=== PATIENT | female | born 1945 | race Caucasian/White ===

== ENCOUNTER 2021-02-24 14:18 | Day surgery (SDC) | payer MEDICARE, OTHER ==
[~2021-02-24] VITALS: Ht 152.4 cm; Wt 75.1 kg
[~2021-02-24 14:18] MED LIST: ALBU8HFA2 INH; ATOR20 PO; AZIT500 PO; CARV6.25 PO; COREG PO; ESTR.05PBW TOP; ESTRADIOL PO; FAMO40 PO; GUAI600T33 PO; LISI20 PO; LISINOPRIL PO; MEDR2.5 PO; MOM PO; OMEP40CA12 PO; PROM25 PO; SENNA PO; VENL25 PO; VENLAFAXINE PO; VIT D PO
== END 2021-02-24 15:55 | disposition home or self-care (01) ==
LOC: ORSCSDS 14:18
PROVIDERS: Internal Medicine Gastroenterology
PROC: 0DBK8ZX Excision of Ascending Colon, Via Natural or Artificial Opening Endoscopic, Diagnostic (ICD-10-PCS; principal; 2021-02-24 15:15)
PROC: 0DBH8ZX Excision of Cecum, Via Natural or Artificial Opening Endoscopic, Diagnostic (ICD-10-PCS; principal; 2021-02-24 15:15)
DX: Z12.11 Encounter for screening for malignant neoplasm of colon (principal); Z86.010 Personal history of colon polyps; D12.0 Benign neoplasm of cecum; D37.4 Neoplasm of uncertain behavior of colon; K64.8 Other hemorrhoids; K63.89 Other specified diseases of intestine; K57.30 Diverticulosis of large intestine without perforation or abscess without bleeding; I10 Essential (primary) hypertension; Z79.899 Other long term (current) drug therapy
CPT/HCPCS: 88305; J2405; J2704; J7120

== ENCOUNTER → 2021-07-13 | Outpatient (CLI) | payer MEDICARE, OTHER | END | disposition home or self-care (01) | LOC: LAB SHORT 11:40 → LAB 11:40 | DX: L57.0 Actinic keratosis (principal) | CPT/HCPCS: 88305 ==

== ENCOUNTER 2023-11-12 07:24 | Day surgery (SDC) | payer MEDICARE, OTHER ==
[~2023-11-12] VITALS: Ht 154.9 cm; Wt 77.0 kg
[~2023-11-12 07:24] MED LIST changes: -CARV6.25 PO; +Carvedilol12.5 MG PO; +FOLI1 PO; +KETOROLAC TROMET5 ML; +Triamcinolone A15 G4 TOP; +VENL150ER PO; -VENL25 PO
[2023-11-12] MEDS ORDERED: ASPIR 8181 MG PO (07:45)
[2023-11-12] MEDS ORDERED: VITAMIN B125000 MC1 PO (07:45)
[2023-11-12] MEDS ORDERED: VITAMIN B122500 MC1 PO (07:46)
[2023-11-12] MEDS ORDERED: DOCU100 PO (07:46)
[2023-11-12 08:43] VITALS: BP 142/68
--- NOTE | 2023-11-12 08:58 | NUR ---
11/12/23 0858 Prince Gross IV REMOVED INTACT. SITE WNL.
== END 2023-11-12 08:58 | disposition home or self-care (01) ==
LOC: ORSCSDS 07:24
PROVIDERS: Student in an Organized Health Care Education/Training Program
PROC: 08RJ3JZ Replacement of Right Lens with Synthetic Substitute, Percutaneous Approach (ICD-10-PCS; principal; 2023-11-12 08:30)
DX: H25.13 Age-related nuclear cataract, bilateral (principal); I10 Essential (primary) hypertension; E78.00 Pure hypercholesterolemia, unspecified; K21.9 Gastro-esophageal reflux disease without esophagitis; J44.9 Chronic obstructive pulmonary disease, unspecified; F32.A Depression, unspecified; Z79.899 Other long term (current) drug therapy; Z87.891 Personal history of nicotine dependence
CPT/HCPCS: J2001; J2250; J7040; V2632

== ENCOUNTER 2023-11-26 07:55 | Day surgery (SDC) | payer MEDICARE, OTHER ==
[~2023-11-26] VITALS: Ht 152.4 cm; Wt 77.0 kg
[~2023-11-26 07:55] MED LIST changes: +ASPIR 8181 MG PO; +DOCU100 PO; +VITAMIN B122500 MC1 PO; +VITAMIN B125000 MC1 PO
[2023-11-26] MEDS ORDERED: ASPI81CH PO (08:20)
--- NOTE | 2023-11-26 08:29 | NUR ---
11/26/23 0829 Rosie Ordoñez CORRECT EYE IDENTIFIED BY CONSENT AND VERBAL CONFIRMATION FROM PATIENT. PROPARACAINE DROP TO LEFT EYE AT 0813. PLEDGET PLACED IN LEFT EYE AT 0814. LEFT EYE COVERED WITH GAUZE AND TAPE. CALL LIGHT WITHIN REACH.
[2023-11-26 09:16] VITALS: BP 163/78
== END 2023-11-26 09:35 | disposition home or self-care (01) ==
LOC: ORSCSDS 07:55
PROVIDERS: Student in an Organized Health Care Education/Training Program
PROC: 08RK3JZ Replacement of Left Lens with Synthetic Substitute, Percutaneous Approach (ICD-10-PCS; principal; 2023-11-26 09:00)
DX: H25.12 Age-related nuclear cataract, left eye (principal); Z96.1 Presence of intraocular lens; K21.9 Gastro-esophageal reflux disease without esophagitis; I10 Essential (primary) hypertension; J44.9 Chronic obstructive pulmonary disease, unspecified; E66.9 Obesity, unspecified; Z68.33 Body mass index [BMI] 33.0-33.9, adult; Z87.891 Personal history of nicotine dependence; Z79.899 Other long term (current) drug therapy
CPT/HCPCS: J3010; J7040; V2632

== ENCOUNTER → 2023-11-28 | Outpatient (CLI) | payer MEDICARE, OTHER ==
[~2023-11-28] MED LIST changes: +ASPI81CH PO
== END ==
LOC: PLD 12:12 → LAB SHORT 12:12
DX: L57.0 Actinic keratosis (principal)
CPT/HCPCS: 88305

== ENCOUNTER 2024-11-21 16:22 | Emergency (ER) | payer MEDICARE, OTHER ==
[~2024-11-21] VITALS: Ht 154.9 cm; Wt 77.1 kg
[2024-11-21] MEDS ORDERED: [UNRECOGNIZED DRUG - CODE] SL (20:24)
[2024-11-21] MEDS ORDERED: IBUP400 PO (20:25)
[2024-11-21] MEDS ORDERED: THERA-D2000 UNIT PO (20:25)
[2024-11-21] MEDS ORDERED: ELIQUIS5 M2 PO (22:09)
[2024-11-21] MEDS ORDERED: Apixaban 5 MG Tab PO ONE (22:40)
[2024-11-21 22:50] VITALS: BP 163/81
== END 2024-11-21 22:50 | disposition home or self-care (01) ==
LOC: ER 16:22
DX: I82.412 Acute embolism and thrombosis of left femoral vein (principal); I82.432 Acute embolism and thrombosis of left popliteal vein; I82.462 Acute embolism and thrombosis of left calf muscular vein; Z88.1 Allergy status to other antibiotic agents; Z79.899 Other long term (current) drug therapy; Z79.82 Long term (current) use of aspirin; Z87.891 Personal history of nicotine dependence
CPT/HCPCS: 93971; 99283-25; A9270